=== PATIENT | male | born 1980 | race Two or more races ===

== ENCOUNTER 2018-08-25 22:17 | Emergency (ER) | payer SELFPAY ==
[~2018-08-25] VITALS: Ht 177.8 cm; Wt 113.4 kg
[2018-08-25 22:45] VITALS: BP 177/99
--- NOTE | 2018-08-26 00:29 | PHYS DOC ---
Past Medical History Past Medical History: No Pertinent History Past Surgical History: No Surgical History Alcohol Use: Occasionally Drug Use: None Adult General Chief Complaint Chief Complaint: ABSCESS HPI HPI Patient is a 37 year old male who presents with painful mass on his left buttock that began as a small pimple of 3 day duration. Reports a history of axillary abscesses. Denies fever or chills. []sharp nonradiating localized to area no fever no other associated symtpoms. Review of Systems Review of Systems Constitutional: Denies fever or chills [] Eyes: Denies change in visual acuity, redness, or eye pain [] HENT: Denies nasal congestion or sore throat [] Respiratory: Denies cough or shortness of breath [] Cardiovascular: No additional information not addressed in HPI [] GI: Denies abdominal pain, nausea, vomiting, bloody stools or diarrhea [] : Denies dysuria or hematuria [] Musculoskeletal: Denies back pain or joint pain [] Integument: Reports left buttock lesion [] Neurologic: Denies headache, focal weakness or sensory changes [] Endocrine: Denies polyuria or polydipsia [] All other systems were reviewed and found to be within normal limits, except as documented in this note. Current Medications Current Medications Current Medications Medications (Trade) Dose Ordered Sig/Carmelo Start Time Stop Time Status Last Admin Dose Admin Ampicillin Sodium/ Sulbactam Sodium 1.5 gm/Sodium Chloride 50 ml @ 100 mls/hr 1X ONCE 08/26/18 01:00 08/26/18 01:29 DC 08/26/18 00:50 100 MLS/HR Info (CONTRAST GIVEN -- Rx MONITORING) 1 each PRN DAILY PRN 08/26/18 01:15 08/26/18 02:38 DC Iohexol (Omnipaque 300 Mg/ml) 75 ml 1X ONCE 08/26/18 01:30 08/26/18 01:31 DC 08/26/18 01:27 75 ML Ketorolac Tromethamine (Toradol 15mg Vial) 15 mg 1X ONCE 08/26/18 01:00 08/26/18 01:01 DC 08/26/18 00:51 15 MG Lidocaine/ Epinephrine (LIDOCAINE 1%-EPI 1:100,000 Multi-Dose) 20 ml 1X ONCE 08/26/18 01:00 08/26/18 01:01 DC Allergies Allergies Allergies Coded Allergies Type Severity Reaction Last Updated Verified No Known Drug Allergies 08/25/18 No Physical Exam Physical Exam Constitutional: Well developed, well nourished, no acute distress, non-toxic appearance. [] HENT: Normocephalic, atraumatic, bilateral external ears normal, oropharynx moist, no oral exudates, nose normal. [] Eyes: PERRLA, EOMI, conjunctiva normal, no discharge. [] Neck: Normal range of motion, no tenderness, supple, no stridor. [] Cardiovascular:Heart rate regular rhythm, no murmur [] Lungs & Thorax: Bilateral breath sounds clear to auscultation [] Abdomen: Bowel sounds normal, soft, no tenderness, no masses, no pulsatile masses. [] Skin: 4-6 cm fluctuant mass on left intergluteal cleft/perianal, no rash. [] 4 cm away from the anus. Back: No tenderness, no CVA tenderness. [] Extremities: No tenderness, no cyanosis, no clubbing, ROM intact, no edema. [] Neurologic: Alert and oriented X 3, normal motor function, normal sensory function, no focal deficits noted. [] Psychologic: Affect normal, judgement normal, mood normal. [] Current Patient Data Vital Signs Vital Signs Date Time Temp Pulse Resp B/P (MAP) Pulse Ox O2 Delivery O2 Flow Rate FiO2 08/25/18 22:45 99.2 96 15 177/99 (125) 98 Room Air 99.2 Lab Values Laboratory Tests Test 08/26/18 00:40 White Blood Count 9.2 x10^3/uL (4.0-11.0) Red Blood Count 4.45 x10^6/uL (4.30-5.70) Hemoglobin 14.3 g/dL (13.0-17.5) Hematocrit 41.4 % (39.0-53.0) Mean Corpuscular Volume 93 fL (79-100) Mean Corpuscular Hemoglobin 32 pg (25-35) Mean Corpuscular Hemoglobin Concent 35 g/dL (31-37) Red Cell Distribution Width 12.3 % (11.5-14.5) Platelet Count 165 x10^3/uL (140-400) Neutrophils (%) (Auto) 79 % (31-73) H Lymphocytes (%) (Auto) 13 % (24-48) L Monocytes (%) (Auto) 7 % (0-9) Eosinophils (%) (Auto) 1 % (0-3) Basophils (%) (Auto) 0 % (0-3) Neutrophils # (Auto) 7.2 x10^3uL (1.8-7.7) Lymphocytes # (Auto) 1.2 x10^3/uL (1.0-4.8) Monocytes # (Auto) 0.7 x10^3/uL (0.0-1.1) Eosinophils # (Auto) 0.1 x10^3/uL (0.0-0.7) Basophils # (Auto) 0.0 x10^3/uL (0.0-0.2) Sodium Level 133 mmol/L (136-145) L Potassium Level 3.5 mmol/L (3.5-5.1) Chloride Level 96 mmol/L (98-107) L Carbon Dioxide Level 27 mmol/L (21-32) Anion Gap 10 (6-14) Blood Urea Nitrogen 5 mg/dL (8-26) L Creatinine 0.7 mg/dL (0.7-1.3) Estimated GFR (Cockcroft-Gault) 126.2 BUN/Creatinine Ratio 7 (6-20) Glucose Level 186 mg/dL (70-99) H Calcium Level 9.1 mg/dL (8.5-10.1) Total Bilirubin 1.0 mg/dL (0.2-1.0) Aspartate Amino Transferase (AST) 72 U/L (15-37) H Alanine Aminotransferase (ALT) 118 U/L (16-63) H Alkaline Phosphatase 123 U/L (46-116) H Total Protein 8.0 g/dL (6.4-8.2) Albumin 3.0 g/dL (3.4-5.0) L Albumin/Globulin Ratio 0.6 (1.0-1.7) L Laboratory Tests 08/26/18 00:40 Laboratory Tests 08/26/18 00:40 EKG EKG [] Radiology/Procedures Radiology/Procedures [] Impressions: IMPRESSION: 1. Within the left inferior buttock a subcutaneous fluid collection identified with adjacent edema to the fat. This measures up to about 43 x 19 mm. Could be secondary to abscess within the region if the patient is having infectious symptoms. Electronically signed by: Denny Calderon MD (08/26/2018 1:56 AM) [facility] Course & Med Decision Making Course & Med Decision Making Pt is a 37 year old male with no significant past medical history presents with a 4-6 cm fluctuant perianal abscess of [address]. [address] to rule out perirectal abscess that came back negative Pertinent Labs and Imaging studies reviewed. (See chart for details) Plan Incision and drainage: verbal consetn obtained. chloraprep, lido with epi 6 ml, 3 cm incision made large amount of foul smelling pus returned, loculations explored wound packed pt tolerated well. Wound care instructions given patient advised to come back to the ER in 2-3 days for a wound recheck Keflex, Bactrim [] Dragon Disclaimer Dragon Disclaimer This electronic medical record was generated, in whole or in part, using a voice recognition dictation system. Departure Departure Impression: Primary Impression: Abscess Disposition: HOME, SELF-CARE Condition: STABLE Referrals: NO PCP (PCP) Scripts Docusate Sodium (COLACE) 100 Mg Capsule 1 CAP PO BID, #30 CAP Prov: FEDERICO BENTON MD 08/26/18 Hydrocodone/Apap 5-325 (NORCO 5-325 TABLET) 1 Each Tablet 1-2 EACH PO PRN Q6HRS PRN for PAIN, #15 as needed for pain Prov: FEDERICO BENTON MD 08/26/18 Sulfamethoxazole/Trimethoprim (BACTRIM DS TABLET) 1 Each Tablet 1 TAB PO BID, #20 TAB Prov: FEDERICO BENTON MD 08/26/18 Cephalexin (CEPHALEXIN) 500 Mg Tablet 1 TAB PO QID, #40 TAB Prov: FEDERICO BENTON MD 08/26/18 FEDERICO BENTON MD Aug 26, 2018 00:29
[2018-08-26 00:48] LABS: BASO % 0 % (0-3); EOS # 0.1 x10^3/uL (0.0-0.7); EOS % 1 % (0-3); HEMATOCRIT 41.4 % (39.0-53.0); HEMOGLOBIN 14.3 g/dL (13.0-17.5); LYMPH # 1.2 x10^3/uL (1.0-4.8); LYMPH % 13 % (24-48); MEAN CORPUSCULAR HEMOGLOBIN 32 pg (25-35); MEAN CORPUSCULAR HGB CONC 35 g/dL (31-37); MEAN CORPUSCULAR VOLUME 93 fL (79-100); MONO # 0.7 x10^3/uL (0.0-1.1); MONO % 7 % (0-9); NEUT # 7.2 x10^3uL (1.8-7.7); NEUT % 79 % (31-73); PLATELET COUNT 165 x10^3/uL (140-400); RED BLOOD COUNT 4.45 x10^6/uL (4.30-5.70); RED CELL DISTRIBUTION WIDTH 12.3 % (11.5-14.5); WHITE BLOOD COUNT 9.2 x10^3/uL (4.0-11.0)
[2018-08-26 00:58] LABS: CALCIUM 9.1 mg/dL (8.5-10.1); CREATININE 0.7 mg/dL (0.7-1.3); GFR 126.2; POTASSIUM 3.5 mmol/L (3.5-5.1)
[2018-08-26] MEDS ORDERED: KETOROLAC 15 MG/ML VIAL. IV ONE (01:00)
[2018-08-26] MEDS ORDERED: AMPICILLIN/SULBACTAM 1.5 GM in IV NORMAL SALINE 50ML 50 ML IV ONE (01:00)
[2018-08-26] MEDS ORDERED: LIDOCAINE 1%/EPI 1:100,000 20 ML VIAL. INJ ONE (01:00)
[2018-08-26 01:03] LABS: ALBUMIN/GLOBULIN RATIO 0.6 (1.0-1.7)
[2018-08-26] MEDS ORDERED: CONTRAST GIVEN. MC PRN (01:15)
[2018-08-26] MEDS ORDERED: IOHEXOL 300 MG/ML 100ML VIAL. IV ONE (01:30)
[2018-08-26] MEDS ORDERED: DOCU-109 PO (01:48)
[2018-08-26] MEDS ORDERED: CEPH500T PO (01:48)
[2018-08-26] MEDS ORDERED: SULF1TAB24 PO (01:48)
[2018-08-26] MEDS ORDERED: HYDR-3164 PO (01:48)
--- NOTE | 2018-08-26 01:59 | RAD ---
INDICATION: perianal v. perirectal abscess eval, OMNI 300, 75ml COMPARISON: None. TECHNIQUE: Axial CT images obtained through the abdomen and pelvis with contrast. One or more of the following individualized dose reduction techniques were utilized for this examination: 1. Automated exposure control; 2. Adjustment of the mA and/or kV according to patient size; 3. Use of iterative reconstruction technique. FINDINGS: Sub-4 mm right lung base nodule. Typically benign in a patient of this age in the absence of malignancy. Moderate right-sided fat-containing inguinal hernia. Liver is borderline low attenuation. Mild fatty infiltration is possible given this finding. No peripancreatic fluid collection. Spleen unremarkable. No left-sided hydronephrosis. Urinary bladder is somewhat distended at time of exam. No right-sided hydronephrosis. Within the left inferior buttock a subcutaneous fluid collection identified with adjacent edema to the fat. This measures up to about 43 x 19 mm. There is some degenerative changes of the spine. There is an apparent linear structure extending from this collection superiorly towards the anal region which could be from a small tract within the area. This fluid collection is located at least 4 cm away from the anus. IMPRESSION: 1. Within the left inferior buttock a subcutaneous fluid collection identified with adjacent edema to the fat. This measures up to about 43 x 19 mm. Could be secondary to abscess within the region if the patient is having infectious symptoms. Electronically signed by: Denny Calderon MD (08/26/2018 1:56 AM) [facility]
== END 2018-08-26 02:38 | disposition home or self-care (01) ==
LOC: ER 22:17
DX: L02.31 Cutaneous abscess of buttock (principal)
CPT/HCPCS: 36415; 74177; 80053; 85025; 96365; 96375; 99284; J0295; J1885; Q9967

== ENCOUNTER 2018-08-28 23:04 | Emergency (ER) | payer SELFPAY ==
[~2018-08-28] VITALS: Ht 180.3 cm; Wt 115.7 kg
[~2018-08-28 23:04] MED LIST: CEPH500T PO; DOCU-109 PO; HYDR-3164 PO; SULF1TAB24 PO
[2018-08-28 23:06] VITALS: BP 159/78
--- NOTE | 2018-08-29 01:00 | PHYS DOC ---
Past Medical History Past Medical History: No Pertinent History Past Surgical History: No Surgical History Additional Information: Nonsmoker Alcohol Use: Occasionally Drug Use: None Adult General Chief Complaint Chief Complaint: WOUND RECHECK/SUTURE REMOVAL HPI HPI 37 y/o male presents for wound evaluation. Patient was seen in ED on 08/25/18 for left buttocks abscess which had been ongoing for 3 days. Patient underwent bedside incision and drainage with packing placement. Patient was also started on Bactrim DS and Keflex. Reports was instructed to return today for re- evaluation and packing removal. Reports pain has significantly improved but reports still slightly tender. Denies fever/chills. Review of Systems Review of Systems Constitutional: Denies fever or chills [] GI: Denies abdominal pain, nausea, or vomiting Integument: Reports left buttocks abscess s/p I&D Complete systems were reviewed and found to be within normal limits, except as documented in this note. Allergies Allergies Allergies Coded Allergies Type Severity Reaction Last Updated Verified No Known Drug Allergies 08/25/18 No Physical Exam Physical Exam Constitutional: Well developed, well nourished, no acute distress, non-toxic appearance. [] HENT: Normocephalic, atraumatic Eyes: Conjunctiva normal, no discharge. [] Neck: Normal range of motion, supple Skin: Warm, dry, packed open wound to left buttocks with mild surrounding erythema, packing removed with scant purulent drainage, some granulation tissue formation noted, some induration still noted but without fluctuance Neurologic: Alert and oriented X 3, speech normal Psychologic: Affect normal, judgement normal, mood normal. [] Current Patient Data Vital Signs EKG EKG [] Radiology/Procedures Radiology/Procedures [] Course & Med Decision Making Course & Med Decision Making Patient presents for wound re-evaluation s/o I&D for left buttocks abscess. Packing removed. Wound appears to be healing appropriately. Patient advised to continue previously prescribed antibiotics and to keep would clean, dry, and covered. Advised use of topical OTC antibiotics ointment. Wound dressed. Patient stable for discharge home with outpatient follow-up with PCP. Discussed findings and plan with patient, who acknowledges understanding and agreement. Dragon Disclaimer Dragon Disclaimer This electronic medical record was generated, in whole or in part, using a voice recognition dictation system. Departure Departure Impression: Primary Impression: Encounter for wound re-check Additional Impression: Encounter for abscess packing removal Disposition: HOME, SELF-CARE Condition: STABLE Referrals: NO PCP (PCP) Patient Instructions: Wound Check Additional Instructions: Wound appears to be healing appropriately. Continue previously prescribed antibiotics as directed. Problem Qualifiers JERMAINE BOYCE DO Aug 29, 2018 01:00
== END 2018-08-29 01:07 | disposition home or self-care (01) ==
LOC: ER 23:04
DX: Z48.01 Encounter for change or removal of surgical wound dressing (principal); L02.01 Cutaneous abscess of face
CPT/HCPCS: 99281; 99283